=== PATIENT | male | born 1995 | race Caucasian/White ===

== ENCOUNTER 2016-09-26 01:37 | Emergency (ER) | payer BC ==
[~2016-09-26] VITALS: Ht 190.5 cm; Wt 88.8 kg
[2016-09-26 01:40] VITALS: TEMP 36.6; Ht 190.5 cm; Wt 88.8 kg
[2016-09-26] MEDS ORDERED: LIDOCAINE HCL 1% 20 ML VIAL ONE (01:53)
[2016-09-26] MEDS ORDERED: XYLOCAINE 1%/SOD BICARB 20 ML VIAL INFIL ONE (02:00)
[2016-09-26] MEDS ORDERED: MULT-506 PO (02:28)
[2016-09-26 03:24] VITALS: BP 133/74; PULSE 81; O2SAT 96
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
== END 2016-09-26 03:27 | disposition home or self-care (01) ==
LOC: C.EDB 01:38 → C.EDA 03:27
DX: S01.511A Laceration without foreign body of lip, initial encounter (principal); Y04.0XXA Assault by unarmed brawl or fight, initial encounter; Y92.89 Other specified places as the place of occurrence of the external cause; F17.210 Nicotine dependence, cigarettes, uncomplicated